=== PATIENT | female | born 1965 | race Caucasian/White ===

== ENCOUNTER → 2018-04-22 12:49 | Outpatient (CLI) | payer OTHER, SELFPAY ==
--- NOTE | 2018-04-22 | DI.MRI.S_ITS ---
PROCEDURE: MR HIP LT W CON INDICATIONS: LEFT HIP AND GROIN PAIN TECHNIQUE: After the administration of 10 mL of dilute intra-articular Gadolinium contrast, coronal STIR of the majority of the bony pelvis; coronal and oblique axial T1 spin echo with fat saturation, axial T2 fast spin echo with fat saturation, sagittal T1 spin echo with and without fat saturation of the involved hip. COMPARISON: [facility], MR, MR HIP RT W CON, 04/22/2018, 14:03. [facility], MR, HIP WITH CONTRAST, 01/05/2017, 10:25. [facility], CR, HIPBILAT 3TO4V W PEL IF PERFD, 01/05/2017, 10:02. FINDINGS: Image quality: Diagnostic. Bones and joints: There is no acute fracture, dislocation, or suspicious osseous lesion identified involving the osseous structures of the left hip. Slight heterogeneity of the superior hyaline articular cartilage over the left hip is identified. No definite full-thickness cartilaginous defects are identified. Minimal degenerative changes are identified involving the left hip with slight marrow edema evident along the anterior margin of the left hip the femoral head-neck junction. The alpha angle of the left femoral head measures approximately 63?. There is adequate distention of the left hip joint with the injected contrast. No loose intra-articular joint bodies or significant synovial hypertrophy is appreciated. Postoperative and degenerative changes of the lower lumbar spine are evident. Mild edema is noted within the paraspinal muscles, which is similar to the previous MRI of the contralateral hip. Degenerative changes of the sacroiliac joints and right hip are also present. Labrum: There is a very small tear identified within the 12 o'clock position of the superior labrum. No detached labral fragment or large paralabral cysts are evident. There may be additional separate tear along the posterior aspect of the labrum extending from approximately the 3 o'clock position to the 4 o'clock position (image 12, series 3). Tendons and ligaments: There is moderate increased signal identified involving the distal aspect of the gluteus minimus tendon with overlying soft tissue edema. There is also slight increased signal involving the distal gluteus medius tendon. No significant tearing is identified. There may be a trace of fluid within the greater trochanteric bursa. The distal left iliopsoas and proximal hamstrings tendons are intact and otherwise within normal limits. The ligamentum teres appears intact where visualized. Soft tissues: Visualized muscles demonstrate normal bulk and internal signal. Quadratus femoris muscle demonstrates no internal edema to suggest ischiofemoral impingement. The proximal sciatic neurovascular bundle appears normal adjacent to the hamstring tendons. No free pelvic fluid. Bladder wall thickness is normal. Genitourinary structures and bowel loops appear normal where visualized. IMPRESSION: 1. Mild degenerative changes of the left hip with corresponding increased alpha angle and prominence of the femoral head-neck junction. Please correlate clinically for possible cam-type femoral acetabular impingement. 2. Small focal superior labral tear and an additional posterior inferior labral tear. 3. Mild to moderate distal gluteus medius and gluteus minimus tendinopathy without significant tearing. Dictated by: Kong Escobar M.D. on 04/22/2018 at 16:14 Approved by: Kong Escobar M.D. on 04/22/2018 at 16:21
--- NOTE | 2018-04-22 | DI.RAD.S_ITS ---
PROCEDURE: FL HIP INJECTION MR/CT RT INDICATIONS: PAIN IN UNSPECIFIED HIP TECHNIQUE: The indications, alternatives, benefits, risks, and complications of the procedure were explained to the patient. Written informed consent was obtained and placed in the chart. The hip was examined fluoroscopically with the legs fixed in slight internal rotation, and a site for needle placement chosen for entry into the hip joint from an anterior approach. Care was taken to locate the common femoral artery and vein beforehand. The skin was prepped and draped in a sterile fashion, and 1% Lidocaine infiltrated from skin down to joint capsule. A spinal needle was inserted into the joint, and a small amount of iodinated contrast media injected to confirm intra-articular placement of the needle tip. This was followed by approximately 10 mL dilute solution of a gadolinium containing MR contrast agent. The needle was removed and a dressing was applied. The patient was given postprocedural instructions and sent to the MR suite for imaging. FINDINGS: A single fluoroscopic spot image demonstrates intra-articular location of injected iodinated contrast. IMPRESSION: Successful fluoroscopically guided administration of dilute Gadolinium solution into the hip joint for MR arthrogram. Dictated by: Deni Pulliam M.D. on 04/22/2018 at 13:31 Approved by: Deni Pulliam M.D. on 04/22/2018 at 13:32
--- NOTE | 2018-04-22 | DI.MRI.S_ITS ---
PROCEDURE: MR HIP RT W CON INDICATIONS: PAIN IN UNSPECIFIED HIP TECHNIQUE: After the administration of 10 mL of dilute intra-articular Gadolinium contrast, coronal STIR of the majority of the bony pelvis; coronal and oblique axial T1 spin echo with fat saturation, axial T2 fast spin echo with fat saturation, sagittal T1 spin echo with and without fat saturation of the involved hip. COMPARISON: [facility], MR, HIP WITH CONTRAST, 01/05/2017, 10:25. FINDINGS: Image quality: Diagnostic. Bones and joints: There is no acute fracture, dislocation, suspicious osseous lesion, or evidence of avascular necrosis involving the osseous structures of the right hip. Mild thinning of the superior hyaline articular cartilage of the right hip is identified without a definite full-thickness defect appreciated. Mild degenerative changes of the hip are present. Minimal degenerative cystic change on the anterior femoral head-neck region is noted. A small bony protuberance is evidence on the anterior femoral head-neck junction with mild increase in the mouth angle of the right femoral head, measuring approximately 60?. There is adequate distention of the right hip joint with the injected contrast. No loose intra-articular joint bodies are evident. The remainder of the imaged osseous structures of the pelvis demonstrate postsurgical changes of the lower lumbar spine with mild edema involving the adjacent paraspinal muscles. There may be mild degenerative changes involving the sacroiliac joints and the left hip. This appearance is similar to the prior examination. Labrum: There is a small superior labral tear identified at that extends from approximately the 11 o'clock position to the 1 o'clock position. This tear is slightly more pronounced on the current exam. No detached labral fragments are evident. No large paraseptal cysts are evident. Tendons and ligaments: The distal right iliopsoas and proximal hamstrings tendons are intact and otherwise within normal limits. There is thickening and increased signal identified involving the distal right gluteus minimus tendon. Slight increase signal involving the distal gluteus medius tendon is present. There is no significant tearing. Edema within the greater trochanteric bursa is present. There may be a trace amount of fluid contained within the bursa. The ligamentum teres appears intact where visualized. Soft tissues: Visualized muscles demonstrate normal bulk and internal signal. Quadratus femoris muscle demonstrates no internal edema to suggest ischiofemoral impingement. The proximal sciatic neurovascular bundle appears normal adjacent to the hamstring tendons. No free pelvic fluid. Bladder wall thickness is normal. Genitourinary structures and bowel loops appear normal where visualized. IMPRESSION: 1. Small superior labral tear is slightly more prominent on the current study. No detached fragments. 2. Mild degenerative changes of the right hip with associated mildly increased alpha angle and bony prominence of the femoral head-neck junction. Please correlate clinically for possible cam-type femoral acetabular impingement. 3. Mild to moderate distal gluteus medius and gluteus minimus tendinopathy without significant tearing. 4. No loose intra-articular joint bodies. Dictated by: Kong Escobar M.D. on 04/22/2018 at 15:41 Approved by: Kong Escobar M.D. on 04/22/2018 at 15:48
--- NOTE | 2018-04-22 12:54 | DI.RAD.S_ITS ---
PROCEDURE: FL HIP INJECTION MR/CT LT INDICATIONS: PAIN IN UNSPECIFIED HIP TECHNIQUE: The indications, alternatives, benefits, risks, and complications of the procedure were explained to the patient. Written informed consent was obtained and placed in the chart. The hip was examined fluoroscopically with the legs fixed in slight internal rotation, and a site for needle placement chosen for entry into the hip joint from an anterior approach. Care was taken to locate the common femoral artery and vein beforehand. The skin was prepped and draped in a sterile fashion, and 1% Lidocaine infiltrated from skin down to joint capsule. A spinal needle was inserted into the joint, and a small amount of iodinated contrast media injected to confirm intra-articular placement of the needle tip. This was followed by approximately 10 mL dilute solution of a gadolinium containing MR contrast agent. The needle was removed and a dressing was applied. The patient was given postprocedural instructions and sent to the MR suite for imaging. FINDINGS: A single fluoroscopic spot image demonstrates intra-articular location of injected iodinated contrast. IMPRESSION: Successful fluoroscopically guided administration of dilute Gadolinium solution into the hip joint for MR arthrogram. Dictated by: Deni Pulliam M.D. on 04/22/2018 at 15:56 Approved by: Deni Pulliam M.D. on 04/22/2018 at 15:56
== END ==
PROVIDERS: PCP Family Medicine; Visit Provider Internal Medicine
DX: M25.551 Pain in right hip (principal); M25.552 Pain in left hip; M16.0 Bilateral primary osteoarthritis of hip; S73.192A Other sprain of left hip, initial encounter; S73.191A Other sprain of right hip, initial encounter
CPT/HCPCS: 27093; 73722; 77002

== ENCOUNTER → 2020-08-07 11:41 | Outpatient (CLI) | payer OTHER, SELFPAY ==
--- NOTE | 2020-08-07 11:43 | DI.RAD.S_ITS ---
PROCEDURE: XR ANKLE RT 2V INDICATIONS: PAIN IN BOTH FEET TECHNIQUE: 2 views of the ankle were acquired. COMPARISON: None. FINDINGS: Bones: No fractures or dislocations. Ankle mortise is normally aligned. No suspicious bony lesions. A small corticated ossicle distal to the lateral malleolus. Mild osteoarthritic changes at the tibiotalar joint and talonavicular joint. Soft tissues: No tibiotalar joint effusion. Achilles tendon appears normal. IMPRESSION: Mild osteoarthritis. Dictated by: Deni Pulliam M.D. on 08/07/2020 at 12:27 Approved by: Deni Pulliam M.D. on 08/07/2020 at 12:37
--- NOTE | 2020-08-07 11:43 | DI.RAD.S_ITS ---
PROCEDURE: XR FOOT LT 2V INDICATIONS: PAIN IN BOTH FEET TECHNIQUE: 2 views of the foot were acquired. COMPARISON: None. FINDINGS: Bones: No fractures or dislocations. No suspicious bony lesions. Lawa-ra-jboudajxvjlhbo changes at the 1st metatarsophalangeal joint and multiple interphalangeal joints. Soft tissues: No tibiotalar joint effusion. Achilles tendon appears normal. IMPRESSION: Defz-sw-[id number] osteoarthritis. Dictated by: Deni Pulliam M.D. on 08/07/2020 at 12:38 Approved by: Deni Pulliam M.D. on 08/07/2020 at 12:39
--- NOTE | 2020-08-07 11:43 | DI.RAD.S_ITS ---
PROCEDURE: XR FOOT RT 2V INDICATIONS: PAIN IN BOTH FEET TECHNIQUE: 2 views of the foot were acquired. COMPARISON: None. FINDINGS: Bones: No fractures or dislocations. No suspicious bony lesions. Mild arthritic changes at the first metatarsophalangeral joint and multiple interphalangeal joints. Soft tissues: No tibiotalar joint effusion. Achilles tendon appears normal. IMPRESSION: Mild osteoarthritis. Dictated by: Deni Pulliam M.D. on 08/07/2020 at 12:25 Approved by: Deni Pulliam M.D. on 08/07/2020 at 12:26
--- NOTE | 2020-08-07 11:43 | DI.RAD.S_ITS ---
PROCEDURE: XR ANKLE LT 2V INDICATIONS: PAIN IN BOTH FEET TECHNIQUE: 2 views of the ankle were acquired. COMPARISON: None. FINDINGS: Bones: No fractures or dislocations. Ankle mortise is normally aligned. No suspicious bony lesions. Soft tissues: No tibiotalar joint effusion. Achilles tendon appears normal. IMPRESSION: No acute osseous abnormality. Dictated by: Deni Pulliam M.D. on 08/07/2020 at 12:37 Approved by: Deni Pulliam M.D. on 08/07/2020 at 12:38
--- NOTE | 2020-08-07 11:59 | DI.MRI.S_ITS ---
PROCEDURE: MRFOOT LT WO CON INDICATIONS: PAIN IN FEET TECHNIQUE: Noncontrast sagittal T1 spin echo and T2 fast spin echo with fat saturation, long-axis T1 spin echo and T2 fast spin echo with fat saturation, short-axis T1 spin echo and T2 fast spin echo with fat saturation through the forefoot. COMPARISON: None. FINDINGS: Image quality: Excellent. Bones and joints: No acute trabecular bone injury. Mild degenerative changes are seen in the 1st tarsometatarsal joint. Oarm-iv-sseesong 1st tarsometatarsal joint degenerative changes are seen in there are mild degenerative changes at the metatarsal sesamoid articulations. Minimal degenerative changes are seen in the sesamoids without associated edema. No intraosseous lesions. Soft tissues: The visualized plantar foot muscles demonstrate normal signal and bulk. Visualized flexor and extensor tendons appear intact, without tenosynovitis. The distal insertions of the peroneus brevis and longus tendons appear intact. The principal Lisfranc ligament appears intact. A 3 mm fluid collection plantar to the 4th metatarsal head is most likely a small adventitial bursal collection. Sagittal images demonstrate no evidence for plantar plate tears. IMPRESSION: 1. No acute osseous abnormality. Mild to moderate 1st metatarsophalangeal and 1st tarsometatarsal joint osteoarthrosis. 2. Tiny 3 mm adventitial bursal effusion at the plantar aspect of the 4th metatarsal head. Dictated by: Paul Bustos M.D. on 08/07/2020 at 13:57 Approved by: Paul Bustos M.D. on 08/07/2020 at 14:03
--- NOTE | 2020-08-07 11:59 | DI.MRI.S_ITS ---
PROCEDURE: MR FOOT RT WO CON INDICATIONS: PAIN IN FEET TECHNIQUE: Noncontrast sagittal T1 spin echo and T2 fast spin echo with fat saturation, long-axis T1 spin echo and T2 fast spin echo with fat saturation, short-axis T1 spin echo and T2 fast spin echo with fat saturation through the forefoot. COMPARISON: [facility], CR, XR ANKLE RT 2V, 08/07/2020, 12:44. FINDINGS: Image quality: Excellent. Bones and joints: No acute trabecular bone injury. Mild degenerative changes are seen in the 1st tarsometatarsal joint and mild to moderate degenerative changes are seen at the 1st metatarsophalangeal joint. Mild degenerative changes are seen at the articulation between the 1st metatarsal and the sesamoids. No intraosseous lesions. Soft tissues: The visualized plantar foot muscles demonstrate normal signal and bulk. Visualized flexor and extensor tendons appear intact, without tenosynovitis. The distal insertions of the peroneus brevis and longus tendons appear intact. The principal Lisfranc ligament appears intact. No soft tissue ganglion cysts. Sagittal images demonstrate no evidence for plantar plate tears. IMPRESSION: No acute trabecular bone injury. Mild to moderate degenerative changes involving the 1st metatarsophalangeal joint, metatarsosesamoid articulations, and the 1st tarsometatarsal joint. Dictated by: Paul Bustos M.D. on 08/07/2020 at 13:41 Approved by: Paul Bustos M.D. on 08/07/2020 at 13:49
--- NOTE | 2020-08-07 11:59 | DI.MRI.S_ITS ---
PROCEDURE: MR ANKLE LT WO CON INDICATIONS: PAIN IN FEET TECHNIQUE: Noncontrast sagittal T1 spin echo and T2 fast spin echo with fat saturation, axial proton density fast spin echo and T2 fast spin echo with fat saturation, coronal T1 spin echo and T2 fast spin echo with fat saturation through the ankle/hindfoot. COMPARISON: [facility], CR, XR ANKLE LT 2V, 08/07/2020, 12:43. [facility], MR, MR ANKLE RT WO CON, 08/07/2020, 12:04. FINDINGS: Image quality: Excellent. Bones and joints: No bone marrow contusions or fractures. No hindfoot coalitions. No osteochondral injuries of the talar dome. No pathologic joint effusions. Mild degenerative changes are seen at the 1st tarsometatarsal joint. Medial structures: The deep and superficial layers of the deltoid ligament appear intact. The spring ligament components are intact. The posterior tibialis, flexor digitorum longus, and flexor hallucis longus tendons are intact. The posterior tibial neurovascular bundle appears normal within the tarsal tunnel, without extrinsic mass effect. Lateral structures: Attenuation of the anterior talofibular ligament is compatible with chronic tearing of the anterior talofibular ligament. Mildly increased signal in the calcaneofibular ligament also likely represents a chronic sprain. The posterior talofibular ligament is intact. The anterior and posterior tibiofibular ligaments appear intact. The peroneus longus and brevis tendons demonstrate normal location and morphology. The sinus tarsi demonstrates normal fatty signal, without edema, fibrosis, or cyst formation. Anterior structures: The tibialis anterior, extensor hallucis longus, and extensor digitorum longus tendons appear intact. The dorsal talonavicular ligament appears intact. Posterior and plantar structures: Achilles tendon is intact. Medial and lateral bands of the plantar fascia are of normal thickness. No abductor digiti quinti muscle atrophy to suggest Ward neuropathy. IMPRESSION: 1. 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 2. Chronic moderate grade sprain of the calcaneofibular ligament. 3. Mild 1st tarsometatarsal joint osteoarthrosis. Dictated by: Paul Bustos M.D. on 08/07/2020 at 13:49 Approved by: Paul Bustos M.D. on 08/07/2020 at 13:57
--- NOTE | 2020-08-07 11:59 | DI.MRI.S_ITS ---
PROCEDURE: MR ANKLE RT WO CON INDICATIONS: PAIN IN FEET TECHNIQUE: Noncontrast sagittal T1 spin echo and T2 fast spin echo with fat saturation, axial proton density fast spin echo and T2 fast spin echo with fat saturation, coronal T1 spin echo and T2 fast spin echo with fat saturation through the ankle/hindfoot. COMPARISON: [facility], MR, MR FOOT RT WO CON, 08/07/2020, 12:28. [facility], CR, XR ANKLE RT 2V, 08/07/2020, 12:44. FINDINGS: Image quality: Excellent. Bones and joints: No bone marrow contusions or fractures. No hindfoot coalitions. No osteochondral injuries of the talar dome. No pathologic joint effusions. Medial structures: The deep and superficial layers of the deltoid ligament appear intact. The spring ligament components are intact. The posterior tibialis, flexor digitorum longus, and flexor hallucis longus tendons are intact. The posterior tibial neurovascular bundle appears normal within the tarsal tunnel, without extrinsic mass effect. Lateral structures: A small nonedematous ossification is seen at the fibular attachment of the anterior talofibular ligament, compatible with a prior avulsion injury. The calcaneofibular and posterior talofibular ligaments are intact. The anterior and posterior tibiofibular ligaments appear intact. The peroneus longus and brevis tendons demonstrate normal location and morphology. The sinus tarsi demonstrates normal fatty signal, without edema, fibrosis, or cyst formation. Anterior structures: The tibialis anterior, extensor hallucis longus, and extensor digitorum longus tendons appear intact. The dorsal talonavicular ligament appears intact. Posterior and plantar structures: Achilles tendon is intact. Medial and lateral bands of the plantar fascia are of normal thickness. No abductor digiti quinti muscle atrophy to suggest Ward neuropathy. IMPRESSION: 1. Complete tearing of the proximal anterior talofibular ligament from its fibular attachment with associated small chronic nonedematous osseous avulsion fragment. 2. No acute osseous abnormality. No significant tendon injury is seen. Dictated by: Paul Bustos M.D. on 08/07/2020 at 13:28 Approved by: Paul Bustos M.D. on 08/07/2020 at 13:40
== END ==
PROVIDERS: PCP Family Medicine; Referring Provider Podiatrist; Visit Provider Podiatrist
DX: M79.671 Pain in right foot (principal); M79.672 Pain in left foot; M76.72 Peroneal tendinitis, left leg; M76.71 Peroneal tendinitis, right leg; R26.2 Difficulty in walking, not elsewhere classified; M19.071 Primary osteoarthritis, right ankle and foot
CPT/HCPCS: 73600; 73620; 73718; 73721

== ENCOUNTER 2021-06-04 11:23 | Emergency (ER) | payer OTHER, SELFPAY ==
[2021-06-04 11:39] VITALS: PULSE 62; O2SAT 100
[2021-06-04 11:45] VITALS: BP 140/73; PULSE 66; RESP 16; TEMP 37; O2SAT 98; BMI 26.4
[2021-06-04 11:54] LABS: Add Manual Diff / Slide Review NO; Basophils Absolute Auto 0 /uL (0-100); Eosinophils Absolute Auto 0 /uL (0-450); Hematocrit 36.1 % (36-46); Hemoglobin 12.2 g/dL (12.0-16.0); Lymphocytes Absolute Auto 2000 /uL (1100-4500); Lymphocytes Percent Auto 42.4 % (25-40); Mean Corpuscular HGB Conc 33.7 % (30-36); Mean Corpuscular Hemoglobin 29.6 PG (26-34); Mean Corpuscular Volume 87.7 fL (80-100); Monocytes Absolute Auto 300 /uL (0-900); Monocytes Percent Auto 7.1 % (3-14); Neutrophils Absolute Auto 2300 /uL (1500-7000); Neutrophils Percent Auto 48.5 % (50-75); Platelet Count 242 X10^3/uL (150-400); Red Blood Cell Count 4.12 X10^6/uL (4.0-5.2); Red Cell Distribution Width 12.8 % (11.6-14.8); White Blood Cell Count 4.7 X10^3/uL (4.5-11.0)
[2021-06-04 12:00] VITALS: PULSE 64; O2SAT 96
[2021-06-04 12:00] LABS: Alanine Aminotransferase 13 IU/L (<35); Albumin 4.5 g/dL (3.5-5.0); Albumin Globulin Ratio 1.5 (1.0-2.8); Alkaline Phosphatase 51 U/L (38-126); Aspartate Aminotransferase 26 IU/L (14-36); BUN Creatinine Ratio 22.7 (6-22); Bilirubin Total 0.4 mg/dL (0.2-1.3); Blood Urea Nitrogen 15 mg/dL (7-17); Calcium 9.2 mg/dL (8.4-10.2); Carbon Dioxide 29 mmol/L (22-32); Chloride 107 mmol/L (98-107); Estimated Glomerular Filt Rate > 60.0 mL/min (>60); Glucose 101 mg/dL (70-100); HEMOLYSIS 27 (0-50); Lipase 97 U/L (23-300); Potassium 4.2 mmol/L (3.4-5.1); Sodium 139 mmol/L (137-145); Total Protein 7.5 g/dL (6.3-8.2)
--- NOTE | 2021-06-04 12:21 | DI.RAD.S_ITS ---
PROCEDURE: XR CHEST 2V INDICATIONS: Epigastric pain TECHNIQUE: 2 views of the chest were acquired. COMPARISON: [facility], , CHEST 1 VIEW, 04/17/2015, 11:37. FINDINGS: Surgical changes and devices: None. Lungs and pleura: Lungs are clear. No pleural effusions or pneumothorax. Mediastinum: Mediastinal contours are normal. Heart size is normal. Bones and chest wall: No suspicious bony abnormalities. Soft tissues appear unremarkable. IMPRESSION: No acute cardiopulmonary abnormality. Dictated by: Thad Vázquez M.D. on 06/04/2021 at 12:56 Approved by: Thad Vázquez M.D. on 06/04/2021 at 12:57
--- NOTE | 2021-06-04 12:22 | DI.US.S_ITS ---
PROCEDURE: US ABDOMEN LIMITED INDICATIONS: RUQ PAIN TECHNIQUE: Real-time scanning was performed of the abdominal and retroperitoneal organs, with image documentation. COMPARISON: None. FINDINGS: Liver: Liver is normal in size and homogeneous in echotexture. Gallbladder: No gallbladder wall thickening, pericholecystic fluid, or shadowing gallstones. Biliary ducts: Intrahepatic bile ducts are non-dilated. Extrahepatic bile duct caliber measures 6.9 mm. Normal is 6-7 mm or less in diameter, or 10 mm or less post-cholecystectomy. Pancreas: Not well visualized. Miscellaneous: No free abdominal fluid. IMPRESSION: No significant abnormality. Dictated by: Sergio Garza M.D. on 06/04/2021 at 13:21 Approved by: Sergio Garza M.D. on 06/04/2021 at 13:22
--- NOTE | 2021-06-04 12:25 | ED_ITS ---
HPI - Abdominal Pain <Messi Vincent PA-C - Last Filed: 06/04/21 16:24> General Chief Complaint: Abdominal Pain Stated Complaint: Poss Gallbladder attack- sent by PCP Time Seen by Provider: 06/04/21 11:59 Source: patient Mode of arrival: Ambulatory History of Present Illness HPI narrative: 56-year-old female with no reported past medical history presents with 8 days of right-sided flank pain and epigastric pain. Patient states that she has been taking Tylenol and ibuprofen with moderate relief. Patient also tried some Pepto-Bismol last night for the epigastric pain with moderate relief. Denies higher episodes of such pain. Patient denies history of kidney stones, gallstones. Patient endorses some nausea, chills. Patient denies fever, chest pain, cough, shortness of breath, vomiting, dysuria, lightheadedness, dizziness, syncope. Related Data Allergies Allergy/AdvReac Type Severity Reaction Status Date / Time No Known Drug Allergies Allergy Verified 06/04/21 11:45 Review of Systems <Messi Vincent PA-C - Last Filed: 06/04/21 16:24> Review of Systems ROS Unobtainable: All systems reviewed & are unremarkable except as noted in HPI and below Constitutional Constitutional: Reports chills, Denies fatigue, Denies fever(s), Denies frequent falls, Denies lethargy and Denies weakness Eyes Eyes: Denies change in vision, Denies eye discharge, Denies irritation and Denies loss of vision ENT Ears, Nose, Mouth, and Throat: Denies change in voice, Denies dizziness, Denies neck pain, Denies sore throat and Denies throat swelling Cardiovascular Cardiovascular: Denies chest pain, Denies irregular heart rhythm, Denies lightheadedness, Denies palpitations, Denies dyspnea, Denies dyspnea on exertion and Denies orthopnea Respiratory Respiratory: Denies cough, Denies dyspnea, Denies dyspnea on exertion and Denies wheezing Gastrointestinal Gastrointestinal: Reports abdominal pain, Denies change in bowel habits, Denies diarrhea, Reports nausea and Denies vomiting Comments: Right-sided flank pain Genitourinary Genitourinary: Denies hematuria, Denies dysuria, Denies flank pain, Denies urinary incontinence and Denies urinary urgency Musculoskeletal Musculoskeletal: Denies back pain, Denies muscle weakness, Denies neck pain, Denies numbness and Denies tingling Integumentary/Breasts Skin/Breast: Denies pruritus, Denies erythema, Denies rash and Denies wounds Neurologic Neurologic: Denies behavioral changes, Denies confusion, Denies dizziness, Denies frequent falls, Denies loss of vision, Denies numbness, Denies tingling and Denies weakness Psychiatric Psychiatric: Denies anxiety, Denies behavioral changes, Denies confusion, Denies depression, Denies homicidal ideation and Denies suicidal ideation Endocrine Endocrine: Denies fatigue, Denies flushing and Denies palpitations Hematologic/Lymphatic Hematologic/Lymphatic: Denies easy bruising Allergic/Immunologic Allergic/Immunologic: Denies urticaria, Denies throat swelling and Denies wheezing Patient History <Messi Vincent PA-C - Last Filed: 06/04/21 16:24> Social History Smoking Status: Never smoker Smoking Status: Never smoker alcohol intake frequency: holidays/special occasions only Substance Use Type: does not use Exam <Messi Vincent PA-C - Last Filed: 06/04/21 16:24> Initial Vital Signs Initial Vital Signs: Vital Signs Pulse Rate 62 06/04/21 11:39 Pulse Oximetry 100 06/04/21 11:39 Const General: cooperative, healthy appearing and comfortable HENFL Head: normal to inspection Eyes General: appearance normal, both eyes and all related structures Neck Neck: normal visual inspection Chest Chest: normal inspection of the chest Resp Effort & Inspection: normal respiratory effort Auscultation: clear to auscultation bilaterally Cardio Rate: regular rate Rhythm: regular rhythm GI Inspection: normal to inspection Other: Abdomen is soft, nondistended. Tenderness to palpation in the epigastric and right upper quadrant regions. Positive right-sided CVA tenderness. General: CVA tenderness (Right-sided) Back/Spine/Pelvis Back: normal to inspection and CVA tenderness right Other: No midline tenderness to palpation. Skin General: no rashes or lesions noted Neuro General: patient alert, patient awake and patient oriented x3 <Yolanda Shaw DO - Last Filed: 06/07/21 09:11> Initial Vital Signs Initial Vital Signs: Vital Signs Pulse Rate 62 06/04/21 11:39 Pulse Oximetry 100 06/04/21 11:39 Course <Messi Vincent PA-C - Last Filed: 06/04/21 16:24> Orders Ordered: Discontinued Medications Al Hydrox/Mg Hydrox/Simethicone 20 ml/ Lidocaine HCl 15 ml 0 ml PO NOW ONE Stop: 06/04/21 12:24 Last Admin: 06/04/21 12:38 Dose: 35 ml Documented by: ROXANNE Famotidine (Famotidine 20 Mg/2 Ml Vial) 20 mg IV NOW [facility] Last Admin: 06/04/21 12:39 Dose: 20 mg Documented by: ROXANNE Ketorolac Tromethamine (Ketorolac 30 Mg/Ml Vial) 15 mg IV NOW ONE Stop: 06/04/21 12:24 Last Admin: 06/04/21 12:39 Dose: 15 mg Documented by: ROXANNE Vital Signs Vital signs: Vital Signs - 8 hr 06/04/21 11:39 06/04/21 11:45 06/04/21 12:00 Temperature 98.6 F Pulse Rate 62 66 64 Respiratory Rate 16 Blood Pressure 140/73 Pulse Oximetry 100 98 96 06/04/21 13:46 06/04/21 14:00 06/04/21 14:30 Temperature Pulse Rate 62 63 69 Respiratory Rate Blood Pressure 128/65 Pulse Oximetry 96 96 97 <Yolanda Shaw DO - Last Filed: 06/07/21 09:11> Orders Ordered: Discontinued Medications Al Hydrox/Mg Hydrox/Simethicone 20 ml/ Lidocaine HCl 15 ml 0 ml PO NOW ONE Stop: 06/04/21 12:24 Last Admin: 06/04/21 12:38 Dose: 35 ml Documented by: ROXANNE Famotidine (Famotidine 20 Mg/2 Ml Vial) 20 mg IV NOW [facility] Last Admin: 06/04/21 12:39 Dose: 20 mg Documented by: ROXANNE Ketorolac Tromethamine (Ketorolac 30 Mg/Ml Vial) 15 mg IV NOW ONE Stop: 06/04/21 12:24 Last Admin: 06/04/21 12:39 Dose: 15 mg Documented by: ROXANNE Vital Signs Vital signs: Vital Signs - 8 hr 06/04/21 11:39 06/04/21 11:45 06/04/21 12:00 Temperature 98.6 F Pulse Rate 62 66 64 Respiratory Rate 16 Blood Pressure 140/73 Pulse Oximetry 100 98 96 12/21/21 13:46 06/04/21 14:00 06/04/21 14:30 Temperature Pulse Rate 62 63 69 Respiratory Rate Blood Pressure 128/65 Pulse Oximetry 96 96 97 MDM - Abdominal Pain <Hyma KERRI Vincent - Last Filed: 06/04/21 16:24> Lab Data Lab results narrative: Labs within normal limits. UA negative for UTI Result diagrams: 06/04/21 11:35 06/04/21 11:35 Labs: Lab Results 06/04/21 06/04/21 06/04/21 Range/Units 11:35 11:35 11:35 WBC 4.7 (4.5-11.0) X10^3/uL RBC 4.12 (4.0-5.2) X10^6/uL Hgb 12.2 (12.0-16.0) g/dL Hct 36.1 (36-46) % MCV 87.7 (80-100) fL MCH 29.6 (26-34) PG MCHC 33.7 (30-36) % RDW 12.8 (11.6-14.8) % Plt Count 242 (150-400) X10^3/uL Neut % (Auto) 48.5 L (50-75) % Lymph % (Auto) 42.4 H (25-40) % [place] % (Auto) 7.1 (3-14) % Eos % (Auto) 1.0 L (2-4) % Baso % (Auto) 1.0 (0-2) % Neut # (Auto) 2300 (2293-7305) /uL Lymph # (Auto) 2000 (5308-4376) /uL [place] # (Auto) 300 (0-900) /uL Eos # (Auto) 0 (0-450) /uL Baso # (Auto) 0 (0-100) /uL Sodium 139 (137-145) mmol/L Potassium 4.2 (3.4-5.1) mmol/L Chloride 107 (98-107) mmol/L Carbon Dioxide 29 (22-32) mmol/L BUN 15 (7-17) mg/dL Creatinine 0.66 (0.52-1.04) mg/dL Estimated GFR > 60.0 (>60) mL/min BUN/Creatinine Ratio 22.7 H (6-22) Glucose 101 H (70-100) mg/dL Calcium 9.2 (8.4-10.2) mg/dL Total Bilirubin 0.4 (0.2-1.3) mg/dL AST 26 (14-36) IU/L ALT 13 (<35) IU/L Alkaline Phosphatase 51 (38-126) U/L Troponin I < 0.012 (0.01-0.034) ng/mL Total Protein 7.5 (6.3-8.2) g/dL Albumin 4.5 (3.5-5.0) g/dL Globulin 3.0 (1.7-4.1) g/dL Albumin/Globulin Ratio 1.5 (1.0-2.8) Lipase 97 (23-300) U/L Point of care testing: Urine Dip Bedside Urine Glucose Negative Bedside Urine Bilirubin - Negative Bedside Urine Ketone - Negative Urine Specific Burt 1.015 Bedside Urine Occult Blood - Negative Bedside Urine pH 6.5 Bedside Urine Protein - Negative Bedside Urine Urobilinogen - Negative Bedside Urine Nitrite - Negative Bedside Urine Leukocytes - Negative Esterase Imaging Data CT scan - abdomen/pelvis: Radiologist's Impression: PROCEDURE:? CT ABDOMEN PELVIS W CON ? INDICATIONS:? ?kidney stones,?pancreatitis ? TECHNIQUE:? After the administration of IV contrast, axial sections were acquired from the lung bases to the pubic symphysis.? Coronal and sagittal reformats were performed.? For radiation dose reduction, the following was used:? automated exposure control, adjustment of mA and/or kV according to patient size. ? COMPARISON:? [facility], , US ABDOMEN LIMITED, 06/04/2021, 12:44. ? FINDINGS:? Image quality:? Excellent.? ? Lung bases:? Bibasilar atelectasis.? No pleural effusion.? ? Heart:? No significant findings. ? ? ABDOMEN: Liver:? No focal lesion.? ? Gallbladder:? Not distended.? No calcified gallstones.? ? Biliary ducts:? Unremarkable.? ? Pancreas:? Enhances uniformly.? No peripancreatic fluid collection. Spleen:? No splenomegaly. Adrenal Glands:? No nodule. Kidneys and Ureters:? No hydronephrosis.? No hydroureter.? No solid renal mass. ? Stomach and Bowel:? Stomach, small bowel loops, and colon are unremarkable.? The appendix is partially visualized or appendiceal stump.? No inflammatory change seen.? Diverticulosis.? Peritoneum:? No abnormal intraperitoneal fluid.? No free air.? ? Ventral Wall: ? No hernia.? Abdominal Nodes:? No retroperitoneal or mesenteric adenopathy by size criteria.? Vessels:? Aorta and inferior vena cava are normal in size.? ? PELVIS: Pelvic Organs:? There is a trace amount of free fluid in the pelvis.? Uterus is unremarkable.? ? Bladder:? No bladder stones.? Adequately distended. Pelvic Nodes: No enlarged lymph nodes.? Miscellaneous: No inguinal hernias are seen. ? ? ? Bones:? L4-L5 fixation hardware with intervertebral body spacer. ? ? IMPRESSION:? 1. There is a trace amount of free fluid in the pelvis.? This is nonspecific and could be seen in the setting of occult inflammatory process or be physiologic in this female patient although the patient is likely post menopausal given the patient's age. ? 2. Gallbladder is not distended.? No hydronephrosis.? Appendix is partially visualized.? No inflammatory changes identified. ? 3. Diverticulosis.? No diverticulitis appreciated. ? ? Dictated by: Thad Vázquez M.D. on 06/04/2021 at 13:59 ? ? Approved by: Thad Vázquez M.D. on 06/04/2021 at 14:08 ? US - abdomen: Radiologist's Impression: PROCEDURE:? US ABDOMEN LIMITED ? INDICATIONS:? RUQ PAIN ? TECHNIQUE:? Real-time scanning was performed of the abdominal and retroperitoneal organs, with image documentation.? ? COMPARISON:? None. ? FINDINGS:? ? Liver:? Liver is normal in size and homogeneous in echotexture.? ? Gallbladder:? No gallbladder wall thickening, pericholecystic fluid, or shadowing gallstones.? ? Biliary ducts:? Intrahepatic bile ducts are non-dilated.? Extrahepatic bile duct caliber measures 6.9 mm.? Normal is 6-7 mm or less in diameter, or 10 mm or less post-cholecystectomy.? ? Pancreas:? Not well visualized.? Miscellaneous:? No free abdominal fluid.? ? ? IMPRESSION:? No significant abnormality. ? Dictated by: Sergio Garza M.D. on 06/04/2021 at 13:21 ? ? Approved by: Sergio Garza M.D. on 06/04/2021 at 13:22 ? [facility] Narrative Medical decision making narrative: 56-year-old female with no reported past medical history presents with 8 days of right-sided flank pain and epigastric pain. Concern for cholelithiasis versus PUD versus pancreatitis versus kidney stones versus UTI versus pneumonia versus ACS. Will order labs, lipase, EKG, chest x-ray, troponin, ultrasound right upper quadrant. Will consider CT abdomen pelvis if ultrasound negative. Will give Toradol, GI cocktail, Pepcid for symptoms. Will reassess. Labs, CT abdomen pelvis an ultrasound negative for acute findings. Discussed finding of free fluid in the CT with patient. Patient's symptoms improved with medications. Patient will follow-up with her PCP for further workup. ED return precautions discussed with patient. Patient verbalized understanding. <Yolanda Shaw, DO - Last Filed: 06/07/21 09:11> Lab Data Labs: Lab Results 06/04/21 06/04/21 06/04/21 Range/Units 11:35 11:35 11:35 WBC 4.7 (4.5-11.0) X10^3/uL RBC 4.12 (4.0-5.2) X10^6/uL Hgb 12.2 (12.0-16.0) g/dL Hct 36.1 (36-46) % MCV 87.7 (80-100) fL MCH 29.6 (26-34) PG MCHC 33.7 (30-36) % RDW 12.8 (11.6-14.8) % Plt Count 242 (150-400) X10^3/uL Neut % (Auto) 48.5 L (50-75) % Lymph % (Auto) 42.4 H (25-40) % [place] % (Auto) 7.1 (3-14) % Eos % (Auto) 1.0 L (2-4) % Baso % (Auto) 1.0 (0-2) % Neut # (Auto) 2300 (5609-7942) /uL Lymph # (Auto) 2000 (4629-7238) /uL [place] # (Auto) 300 (0-900) /uL Eos # (Auto) 0 (0-450) /uL Baso # (Auto) 0 (0-100) /uL Sodium 139 (137-145) mmol/L Potassium 4.2 (3.4-5.1) mmol/L Chloride 107 (98-107) mmol/L Carbon Dioxide 29 (22-32) mmol/L BUN 15 (7-17) mg/dL Creatinine 0.66 (0.52-1.04) mg/dL Estimated GFR > 60.0 (>60) mL/min BUN/Creatinine Ratio 22.7 H (6-22) Glucose 101 H (70-100) mg/dL Calcium 9.2 (8.4-10.2) mg/dL Total Bilirubin 0.4 (0.2-1.3) mg/dL AST 26 (14-36) IU/L ALT 13 (<35) IU/L Alkaline Phosphatase 51 (38-126) U/L Troponin I < 0.012 (0.01-0.034) ng/mL Total Protein 7.5 (6.3-8.2) g/dL Albumin 4.5 (3.5-5.0) g/dL Globulin 3.0 (1.7-4.1) g/dL Albumin/Globulin Ratio 1.5 (1.0-2.8) Lipase 97 (23-300) U/L Point of care testing: Urine Dip Bedside Urine Glucose Negative Bedside Urine Bilirubin - Negative Bedside Urine Ketone - Negative Urine Specific Burt 1.015 Bedside Urine Occult Blood - Negative Bedside Urine pH 6.5 Bedside Urine Protein - Negative Bedside Urine Urobilinogen - Negative Bedside Urine Nitrite - Negative Bedside Urine Leukocytes - Negative Esterase Discharge Plan Departure Patient Disposition: Home Clinical Impression: Abdominal pain Instructions: DI for Abdominal Pain-Adult Activity Restrictions/Additional Instructions: You were evaluated in the ED today for right-sided flank pain and abdominal pain. Your labs, chest x-ray, ultrasound, EKG, CT abdomen pelvis were normal. Your CT abdomen pelvis did show some free fluid in the pelvis, which might be benign or might need further workup by your PCP. However, it is unlikely to be acutely causing your symptoms today. Your symptoms improved with GI cocktail, Pepcid, Toradol. You may continue to take Pepcid AC twice a day for 14 days for acid reflux. Return to the ED if your symptoms worsen, you develop fevers, chills, chest pain, shortness of breath. Please follow-up with your PCP. Referrals: Montano,Mercy, DO [Primary Care Provider] - <Yolanda Shaw DO - Last Filed: 06/07/21 09:11> Cosign ED Attending Cossaturninoature Attestation: I was immediately available in the department for consultation. Documentation has been reviewed.
[2021-06-04] MEDS: MAG HYDROX/ALUMINUM/SIMETH SUS 20 ML, LIDOCAINE VISCOUS 2% 15 ML PO (12:38)
[2021-06-04] MEDS: KETOROLAC 30 MG/ML VIAL 15 MG IV (12:39)
[2021-06-04] MEDS: FAMOTIDINE 20 MG/2 ML VIAL IV (12:39)
--- NOTE | 2021-06-04 13:34 | DI.CT.S_ITS ---
PROCEDURE: CT ABDOMEN PELVIS W CON INDICATIONS: ?kidney stones,?pancreatitis TECHNIQUE: After the administration of IV contrast, axial sections were acquired from the lung bases to the pubic symphysis. Coronal and sagittal reformats were performed. For radiation dose reduction, the following was used: automated exposure control, adjustment of mA and/or kV according to patient size. COMPARISON: [facility], , ABDOMEN LIMITED, 06/04/2021, 12:44. FINDINGS: Image quality: Excellent. Lung bases: Bibasilar atelectasis. No pleural effusion. Heart: No significant findings. ABDOMEN: Liver: No focal lesion. Gallbladder: Not distended. No calcified gallstones. Biliary ducts: Unremarkable. Pancreas: Enhances uniformly. No peripancreatic fluid collection. Spleen: No splenomegaly. Adrenal Glands: No nodule. Kidneys and Ureters: No hydronephrosis. No hydroureter. No solid renal mass. Stomach and Bowel: Stomach, small bowel loops, and colon are unremarkable. The appendix is partially visualized or appendiceal stump. No inflammatory change seen. Diverticulosis. Peritoneum: No abnormal intraperitoneal fluid. No free air. Ventral Wall: No hernia. Abdominal Nodes: No retroperitoneal or mesenteric adenopathy by size criteria. Vessels: Aorta and inferior vena cava are normal in size. PELVIS: Pelvic Organs: There is a trace amount of free fluid in the pelvis. Uterus is unremarkable. Bladder: No bladder stones. Adequately distended. Pelvic Nodes: No enlarged lymph nodes. Miscellaneous: No inguinal hernias are seen. Bones: L4-L5 fixation hardware with intervertebral body spacer. IMPRESSION: 1. There is a trace amount of free fluid in the pelvis. This is nonspecific and could be seen in the setting of occult inflammatory process or be physiologic in this female patient although the patient is likely post menopausal given the patient's age. 2. Gallbladder is not distended. No hydronephrosis. Appendix is partially visualized. No inflammatory changes identified. 3. Diverticulosis. No diverticulitis appreciated. Dictated by: Thad Vázquez M.D. on 06/04/2021 at 13:59 Approved by: Thad Vázquez M.D. on 06/04/2021 at 14:08
[2021-06-04 13:46] VITALS: PULSE 62; O2SAT 96
[2021-06-04 14:00] VITALS: PULSE 63; O2SAT 96
[2021-06-04 14:30] VITALS: BP 128/65; PULSE 69; O2SAT 97
[2021-06-04 14:36] LABS: Troponin I < 0.012 ng/mL (0.01-0.034)
== END 2021-06-04 14:56 | disposition home or self-care (01) ==
PROVIDERS: Emergency Medicine; Emergency Provider Student in an Organized Health Care Education/Training Program; PCP Family Medicine
DX: R10.13 Epigastric pain (principal); R10.9 Unspecified abdominal pain
CPT/HCPCS: 36415; 71046; 74177; 76705; 80053; 81003; 83690; 84484; 85025; 93005; 96374; 96375; 99284; J1885; Q9967

== ENCOUNTER → 2021-06-20 07:42 | Outpatient (CLI) | payer OTHER, SELFPAY ==
--- NOTE | 2021-06-20 07:45 | DI.NM.S_ITS ---
PROCEDURE: NM HIDA WITH CCK PHARMACEUTICAL: 5.0 mCi Tc-99m mebrofenin IV; 1.4 mcg CCK IV. INDICATIONS: ABDOMINAL PAIN TECHNIQUE: Following intravenous administration of Tc-99m mebrofenin, sequential anterior abdominal images were obtained. To evaluate the contractile response of the gallbladder in response to Cholecystokinin (CCK), sincalide (0.02 ?g/kg) was administered by slow intravenous infusion approximately 60 minutes after the administration of the radiopharmaceutical. Sequential imaging was continued for 30 minutes after the start of CCK infusion. Gallbladder ejection fraction was calculated. COMPARISON: None. FINDINGS: Biliary scan: There is normal tracer uptake and excretion by the liver. There is normal visualization of the intrahepatic ducts, common bile duct, and gallbladder. There is normal tracer transit into the duodenum. CCK stimulation: There is appropriate contractile response of the gallbladder to CCK infusion. The calculated gallbladder ejection fraction is 50% ; normal values are above 35%. It has been shown that any patient abdominal pain after CCK administration is related to the rate of CCK injection, rather than to any underlying gallbladder disease (Clinical Nuclear Medicine 2012; 37: 63-70. Journal of Nuclear Medicine 2014; 55: 1-9). IMPRESSION: Normal HIDA scan. Dictated by: Nya Cabrera M.D. on 06/20/2021 at 11:57 Approved by: Nya Cabrera M.D. on 06/20/2021 at 12:17
== END ==
PROVIDERS: PCP Family Medicine; Referring Provider Family Medicine; Visit Provider Family Medicine
DX: R10.11 Right upper quadrant pain (principal)
CPT/HCPCS: 78227; 99213; A9537; J2805

== ENCOUNTER 2021-06-21 09:45 | Day surgery (SDC) | payer OTHER, SELFPAY ==
--- NOTE | 2021-06-21 | PATH_ITS ---
[facility] Accession Number: [id number] . 01 Material submitted: . PART A: duodenum bulb - DUODENAL BULB PART B: gastrointestinal site - ANTRUM PART C: gastrointestinal site - FUNDUS PART D: gastrointestinal site - FUNDIC POLYP . 02 Diagnosis: A. Duodenal Bulb, Biopsy: Duodenal mucosa with gastric foveolar metaplasia and mild chronic inflammation. Negative for active inflammation and features of celiac disease. . B. Antrum, Biopsy: Gastric antral-type mucosa with mild reactive changes. Negative for intestinal metaplasia and dysplasia. No Helicobacter pylori seen on immunohistochemistry. . C. Fundus, Biopsy: Gastric fundic-type mucosa with mild chronic inflammation. Negative for intestinal metaplasia and dysplasia. No Helicobacter pylori seen on immunohistochemistry. . D. Fundic Polyp, Polypectomy: Gastric-type mucosa with polypoid foveolar hyperplasia. Negative for intestinal metaplasia and dysplasia. No Helicobacter pylori seen on immunohistochemistry. [facility] 06/25/2021 1619 Local . 02 Electronically signed: . Nya Ortega MD, Pathologist NPI- [id number] . 01 Gross description: . Part A: DUODENAL BULB: Received in formalin are 2 fragment(s) of waterman, soft tissue measuring 0.4 x 0.2 x 0.2 cm to 0.4 x 0.2 x 0.1 cm submitted entirely in 1 cassette(s) Part B: ANTRUM: Received in formalin are 2 fragment(s) of waterman, soft tissue measuring 0.4 x 0.3 x 0.2 cm to 0.3 x 0.3 x 0.3 cm submitted entirely in 1 cassette(s) Part C: FUNDUS: Received in formalin are 4 fragment(s) of waterman, soft tissue measuring 0.4 x 0.3 x 0.2 cm to 0.3 x 0.3 x 0.1 cm submitted entirely in 1 cassette(s) Part D: FUNDIC POLYP: Received in formalin is 1 fragment(s) of waterman, soft tissue measuring 0.3 x 0.3 x 0.2 cm submitted entirely in 1 cassette(s) /[facility] 06/22/2021 1232 Local . 02 Microscopic: . An immunohistochemical stain was performed to evaluate for Helicobacter organisms on parts B, C and D, and is negative. The control stain showed appropriate reactivity. . * This test was developed and its performance characteristics determined by [facility]. It has not been cleared or approved by the U.S. Food and Drug Administration. The FDA has determined that such clearance or approval is not necessary. This test is used for clinical purposes. It should not be regarded as investigational or for research. . 02 Pathologist provided ICD-10: R10.9, K31.7 . 02 CPT . 273092, 243391, 670969, 946945, [id number] Performed at: [facility] [address] [address], [place], [place] [id number] MD Papi Bhagat MD Phone: [phone] Performed at: 02 [facility] [address] [place] [id number] MD Paula Garcia MD Phone: [phone]
[2021-06-21 10:36] LABS: COVID19 -Nasal RAPID Negative (Negative)
[2021-06-21 10:53] VITALS: BP 121/73; PULSE 74; RESP 18; TEMP 37.2; O2SAT 97; BMI 27.6
[2021-06-21] MEDS: fentaNYL 250 MCG/5 ML INJ IV (10:53)
[2021-06-21] MEDS: MIDAZOLAM 5 MG/5 ML VIAL IV (10:54)
[2021-06-21] MEDS: LIDOCAINE 4% SOLN 50 ML 20 ML TOP (10:54)
--- NOTE | 2021-06-21 11:02 | PM.PREOP ---
Pre-operative Note COVID-19 COVID-19 status: Negative Result date/Date tested (Pos, Neg/Pending): 06/20/21 Interval Note History & Physical reviewed/Exam performed by Physician: Yes Changes to H&P: No ASA Class (for procedural sedation): II
--- NOTE | 2021-06-21 11:33 | PM.OP.EGD ---
Operative Date/Time/Diagnoses Date of procedure: 06/21/21 Time of procedure: 11:33 Pre-op diagnosis: Dyspepsia Post-op diagnosis: same Procedure & Clinicians Study performed: Esophagogastroduodenoscopy Same procedure as scheduled: Yes Indications: Dyspepsia Surgeon: Arnold Castano Procedure Notes SCOAP/Timeout: Yes Procedure in detail: A timeout was performed. A bite blocked was placed. The patient was positioned in the left lateral decubitus position. The endoscope was inserted through the bite block and passed through the esophagus and stomach and into the duodenum. The duodenal mucosa appeared normal. The scope was withdrawn into the duodenal bulb and no abnormality was noted but random biopsies were taken from the bulb. The scope was withdrawn into the stomach. The antrum appeared mildly inflamed. Random biopsies were taken from the antrum. No abnormality was noted in the body of the stomach. The scope was retroflexed and the fundus and hiatus were examined. There was no hiatal hernia. There were several small ulcerations in the fundus along with some old blood and raised lesions. Biopsies were taken from the ulcerated area as well as the raised lesions. Largest of the wrist lesions was biopsied and sent separately. The scope was withdrawn into the esophagus and no abnormality was noted. The remainder of the esophagus was normal. The scope was withdrawn. The patient was awakened and brought to recovery. Sedation minutes: 21 Post-procedure Recommendations: Will call with biopsy results Disposition: PACU
[2021-06-21 11:38] VITALS: BP 127/79; PULSE 65; RESP 12; TEMP 36.3; O2SAT 98
[2021-06-21 11:43] VITALS: BP 128/78; PULSE 64; RESP 14; O2SAT 98
[2021-06-21 11:48] VITALS: BP 125/80; PULSE 72; RESP 18; O2SAT 99
[2021-06-21 11:53] VITALS: BP 142/76; PULSE 63; RESP 16; O2SAT 98
[2021-06-21 12:00] VITALS: BP 122/74; PULSE 72; RESP 16; O2SAT 97
== END 2021-06-21 12:17 | disposition home or self-care (01) ==
PROVIDERS: PCP Family Medicine; Referring Provider Surgery; Visit Provider Surgery
PROC: 0DJ08ZZ Inspection of Upper Intestinal Tract, Via Natural or Artificial Opening Endoscopic (ICD-10-PCS; CPT 43235; principal; 2021-06-21 10:45)
DX: R10.13 Epigastric pain (principal); Z20.822 Contact with and (suspected) exposure to COVID-19; K29.80 Duodenitis without bleeding; K29.50 Unspecified chronic gastritis without bleeding; K31.7 Polyp of stomach and duodenum
CPT/HCPCS: 43239; 87635; 99152; J2250; J3010

== ENCOUNTER 2023-02-11 10:26 | Emergency (ER) | payer OTHER, SELFPAY ==
[2023-02-11 10:29] VITALS: BP 126/69; PULSE 71; RESP 14; TEMP 36.5; O2SAT 99; BMI 29.2
--- NOTE | 2023-02-11 10:39 | ED_ITS ---
HPI - General Adult General Chief complaint: Abdominal Pain Stated complaint: thinks ulcers/bloating Time Seen by Provider: 02/11/23 10:35 Source: patient Mode of arrival: Family Vehicle History of Present Illness HPI narrative: Patient is a 50-year-old female who is here for evaluation of approximately 1 week of abdominal bloating. She states she is having loose stools. Not diarrhea. No blood in her stool. She states she is not passing gas. She is burping quite a bit. Has had her appendix removed and C-sections. Is nauseous but no vomiting. No chest pain. No shortness of breath. States she is had similar symptoms in the past for which they initially thought that maybe it was her gallbladder however after further testing she had an upper endoscopy and was told that she had stomach ulcers. She talk with her primary doctor approximately 1 week ago about these symptoms. She was placed on Carafate and omeprazole. States it is not helping her symptoms. Related Data Home Medications Medication Instructions Recorded Confirmed alpha lipoic acid PO BID 06/20/21 06/20/21 fiber [Fiber Choice] 2 tab PO QAM 06/20/21 06/20/21 gabapentin 300 mg capsule 600 mg PO BEDTIME 06/20/21 06/20/21 Allergies Allergy/AdvReac Type Severity Reaction Status Date / Time No Known Drug Allergies Allergy Verified 06/21/21 10:47 Review of Systems Constitutional Constitutional: Reports system reviewed and no additional complaints, except as documented Cardiovascular Cardiovascular: Reports system reviewed and no additional complaints, except as documented Respiratory Respiratory: Reports system reviewed and no additional complaints, except as documented Gastrointestinal Gastrointestinal: Reports system reviewed and no additional complaints, except as documented Genitourinary Genitourinary: Reports system reviewed and no additional complaints, except as documented Integumentary/Breasts Skin/Breast: Reports system reviewed and no additional complaints, except as documented Hematologic/Lymphatic On Anticoagulants: No Patient History Medical History Arthralgia Benign paroxysmal positional vertigo Cyst of breast Fibrocystic breast changes Plantar fasciitis Post-menopausal atrophic vaginitis Temporomandibular joint pain dysfunction syndrome Tinea corporis Surgical History (Updated 06/20/21 @ 15:16 by Barbara Mistry RN) History of History of hip surgery Hx of spinal fusion Family History (Updated 06/20/21 @ 15:18 by Barbara Mistry RN) Father Diabetes mellitus Stroke Heart disease Cancer Mother Hypertension Social History marital status: household members: spouse Previous occupational history: Real Estate Smoking Status: Never smoker alcohol intake: current substance use type: does not use Smoking Status: Never smoker alcohol intake frequency: a few times a month Substance Use Type: does not use Exam Initial Vital Signs Initial Vital Signs: Vital Signs Temperature 97.7 F 02/11/23 10:29 Pulse Rate 71 02/11/23 10:29 Respiratory Rate 14 02/11/23 10:29 Blood Pressure 126/69 02/11/23 10:29 Pulse Oximetry 99 02/11/23 10:29 Oxygen Delivery Method Room Air 02/11/23 10:29 HENMT Head: normal to inspection and normocephalic Resp Effort & Inspection: normal respiratory effort Auscultation: clear to auscultation bilaterally Cardio Rate: regular rate Rhythm: regular rhythm GI Inspection: distended Palpation: firm, No guarding, No rigid and No tender Skin General: no rashes or lesions noted Neuro General: patient alert, patient awake and moves all extremities Extrem General: normal to inspection Course Orders Ordered: ED Orders 02/11/23 10:40 CT abdomen pelvis w con Stat 02/11/23 10:56 Complete Blood Count AUTO DIFF Stat Comprehensive Metabolic Panel Stat Lipase Stat Vital Signs Vital signs: Vital Signs - 8 hr 02/11/23 10:29 Temperature 97.7 F Pulse Rate 71 Respiratory Rate 14 Blood Pressure 126/69 Pulse Oximetry 99 Oxygen Delivery Method Room Air Medical Decision Making Lab Data 02/11/23 10:56 02/11/23 10:56 Labs: Lab Results 02/11/23 02/11/23 02/11/23 Range/Units 10:56 10:56 10:56 WBC 4.2 L (4.5-11.0) X10^3/uL RBC 4.36 (4.0-5.2) X10^6/uL Hgb 12.5 (12.0-16.0) g/dL Hct 37.3 (36-46) % MCV 85.5 (80-100) fL MCH 28.6 (26-34) PG MCHC 33.5 (30-36) % RDW 13.0 (11.6-14.8) % Plt Count 244 (150-400) X10^3/uL Neut % (Auto) 55.2 (50-75) % Lymph % (Auto) 36.9 (25-40) % [place] % (Auto) 6.1 (3-14) % Eos % (Auto) 0.9 L (2-4) % Baso % (Auto) 0.9 (0-2) % Neut # (Auto) 2300 (3728-5721) /uL Lymph # (Auto) 1600 (1786-8582) /uL [place] # (Auto) 300 (0-900) /uL Eos # (Auto) 0 (0-450) /uL Baso # (Auto) 0 (0-100) /uL Sodium 140 (137-145) mmol/L Potassium 4.1 (3.4-5.1) mmol/L Chloride 105 (98-107) mmol/L Carbon Dioxide 23 (22-32) mmol/L BUN 15 (7-17) mg/dL Creatinine 0.72 (0.52-1.04) mg/dL Estimated GFR > 60 (>60) mL/min BUN/Creatinine Ratio 20.8 (6-22) Glucose 108 H (70-100) mg/dL Calcium 9.1 (8.4-10.2) mg/dL Total Bilirubin 0.4 (0.2-1.3) mg/dL AST 25 (14-36) IU/L ALT 17 (<35) IU/L Alkaline Phosphatase 59 (38-126) U/L Total Protein 7.4 (6.3-8.2) g/dL Albumin 4.2 (3.5-5.0) g/dL Globulin 3.2 (1.7-4.1) g/dL Albumin/Globulin Ratio 1.3 (1.0-2.8) Lipase 99 (23-300) U/L Urine Dip Bedside Urine Glucose Negative Bedside Urine Bilirubin - Negative Bedside Urine Ketone - Negative Urine Specific Lane 1.000 Bedside Urine Occult Blood - Negative Bedside Urine pH 7.5 Bedside Urine Protein - Negative Bedside Urine Urobilinogen - Negative Bedside Urine Nitrite - Negative Bedside Urine Leukocytes - Negative Esterase Point of care testing: Urine Dip Bedside Urine Glucose Negative Bedside Urine Bilirubin - Negative Bedside Urine Ketone - Negative Urine Specific Lane 1.000 Bedside Urine Occult Blood - Negative Bedside Urine pH 7.5 Bedside Urine Protein - Negative Bedside Urine Urobilinogen - Negative Bedside Urine Nitrite - Negative Bedside Urine Leukocytes - Negative Esterase Imaging Data CT scan - abdomen/pelvis: Radiologist's Impression: No imaging explanation is found for this patient's presenting symptoms No appendix is identified Diverticulosis without diverticulitis. MDM Narrative Medical decision making narrative: Patient does have abdominal distention but does no guarding. No fevers. No vomiting. CT scan shows no acute pathology. Labs unremarkable. I discussed with her the lack of a definitive diagnosis but it does not appear to be an infectious, surgical etiology. Could very well still be related to a stomach ulcer. We did discuss her Carafate and omeprazole she is taken at home. She has a referral in to see GI. We discussed return precautions and follow-up instructions. She expressed understanding and agreement. Discharge Plan Departure Patient Disposition: Home Clinical Impression: Abdominal bloating Instructions: DI for Abdominal Pain-Adult Activity Restrictions/Additional Instructions: Recommend that you continue to take all of your medications like we discussed. You can consider starting to take a medicine called simethicone. Contact your primary doctor and also the GI doctors for follow-up. Return to the emergency department for new or worsening symptoms. Prescriptions: No Action gabapentin 300 mg capsule 600 mg PO BEDTIME fiber [Fiber Choice] 2 tab PO QAM alpha lipoic acid PO BID Referrals: Mercy Montano DO [Primary Care Provider] - Stand Alone Forms: Patient Portal/API
--- NOTE | 2023-02-11 10:40 | DI.CT.S_ITS ---
PROCEDURE: CT ABDOMEN PELVIS W CON INDICATIONS: Generalized abdominal pain with distention TECHNIQUE: After the administration of IV contrast, axial sections were acquired from the lung bases to the pubic symphysis. Coronal and sagittal reformats were performed. For radiation dose reduction, the following was used: automated exposure control, adjustment of mA and/or kV according to patient size. COMPARISON: [facility], CT, CT ABDOMEN PELVIS W CON, 06/04/2021, 13:42. FINDINGS: Image quality: Excellent. Lung bases: Unremarkable. Heart: No significant findings. ABDOMEN: Liver: Unremarkable. Gallbladder: Unremarkable. Biliary ducts: Unremarkable. Pancreas: Unremarkable. Spleen: Unremarkable. Adrenal Glands: Unremarkable. Kidneys and Ureters: Unremarkable. Stomach and Bowel: Stomach, small bowel loops, and colon are unremarkable. Colonic diverticulosis is seen, without findings of active diverticulitis. No appendix (either normal or abnormal) is identified on this study. Peritoneum: No abnormal intraperitoneal fluid. No free air. Ventral Wall: No hernia. Abdominal Nodes: No retroperitoneal or mesenteric adenopathy by size criteria. Vessels: Aorta and inferior vena cava are normal in size. PELVIS: Pelvic Organs: Unremarkable. Bladder: Unremarkable. Pelvic Nodes: No enlarged lymph nodes. Miscellaneous: No inguinal hernias are seen. Bones: Lower lumbar spine postoperative hardware is seen. Age-appropriate bony degenerative changes are seen. Mild dextroconvex scoliotic curvature is seen. IMPRESSION: No imaging explanation is found for this patient's presenting symptoms. No appendix (either normal or abnormal) is identified on this study. Small bowel are seen. Colonic diverticulosis is seen, without findings of active diverticulitis. Additional findings: Lower lumbar spine postoperative hardware Dictated by: Krunal Greene M.D. on 02/11/2023 at 11:32 Approved by: Krunal Greene M.D. on 02/11/2023 at 11:35
[2023-02-11 11:07] LABS: Add Manual Diff / Slide Review NO; Basophils Absolute Auto 0 /uL (0-100); Basophils Percent Auto 0.9 % (0-2); Eosinophils Absolute Auto 0 /uL (0-450); Eosinophils Percent Auto 0.9 % (2-4); Hematocrit 37.3 % (36-46); Hemoglobin 12.5 g/dL (12.0-16.0); Lymphocytes Absolute Auto 1600 /uL (1100-4500); Lymphocytes Percent Auto 36.9 % (25-40); Mean Corpuscular HGB Conc 33.5 % (30-36); Mean Corpuscular Hemoglobin 28.6 PG (26-34); Mean Corpuscular Volume 85.5 fL (80-100); Monocytes Absolute Auto 300 /uL (0-900); Monocytes Percent Auto 6.1 % (3-14); Neutrophils Absolute Auto 2300 /uL (1500-7000); Neutrophils Percent Auto 55.2 % (50-75); Platelet Count 244 X10^3/uL (150-400); Red Blood Cell Count 4.36 X10^6/uL (4.0-5.2); White Blood Cell Count 4.2 X10^3/uL (4.5-11.0)
[2023-02-11 11:18] LABS: Lipase 99 U/L (23-300)
[2023-02-11 11:20] LABS: Alanine Aminotransferase 17 IU/L (<35); Albumin 4.2 g/dL (3.5-5.0); Albumin Globulin Ratio 1.3 (1.0-2.8); Alkaline Phosphatase 59 U/L (38-126); Aspartate Aminotransferase 25 IU/L (14-36); BUN Creatinine Ratio 20.8 (6-22); Bilirubin Total 0.4 mg/dL (0.2-1.3); Blood Urea Nitrogen 15 mg/dL (7-17); Calcium 9.1 mg/dL (8.4-10.2); Carbon Dioxide 23 mmol/L (22-32); Chloride 105 mmol/L (98-107); Estimated Glomerular Filt Rate > 60 mL/min (>60); Globulin 3.2 g/dL (1.7-4.1); Glucose 108 mg/dL (70-100); HEMOLYSIS < 15 (0-50); Potassium 4.1 mmol/L (3.4-5.1); Sodium 140 mmol/L (137-145); Total Protein 7.4 g/dL (6.3-8.2)
[2023-02-11 13:46] VITALS: BP 122/76; PULSE 70; RESP 15; O2SAT 99
== END 2023-02-11 13:50 | disposition home or self-care (01) ==
PROVIDERS: Emergency Provider Emergency Medicine; PCP Family Medicine
DX: R10.84 Generalized abdominal pain (principal); R14.0 Abdominal distension (gaseous)
CPT/HCPCS: 36415; 74177; 80053; 81003; 83690; 85025; 99284

== ENCOUNTER 2023-09-17 10:28 | Day surgery (SDC) | payer OTHER, SELFPAY ==
[2023-09-09 10:50] VITALS: BMI 30.5
[2023-09-17 10:42] VITALS: BP 118/77; PULSE 62; RESP 16; TEMP 36.2; O2SAT 96; BMI 29.2
[2023-09-17] MEDS: LACTATED RINGERS 1,000 ML 21 ML IV (10:47)
--- NOTE | 2023-09-17 12:45 | PM.PREOP ---
Pre-operative Note Interval Note History & Physical reviewed/Exam performed by Physician: Yes Changes to H&P: No
[2023-09-17] MEDS: CEFAZOLIN 2 GM/100 ML PREMIX 100 ML IV (13:46)
--- NOTE | 2023-09-17 13:50 | SUR.OPER ---
Lithotomy on padded OR bed, head on pillow, arms secured on padded arm boards at <90 degrees abduction. Legs secured in padded yellow fins stirrups.
[2023-09-17] MEDS: BUPIVACAINE 0.5% (PF) 30 ML, EPINEPHrine 0.15 MG INJ (13:53)
--- NOTE | 2023-09-17 14:12 | PM.OP.1 ---
Operative Date/Time/Diagnoses Date of procedure: 09/17/23 Time of procedure: 14:12 Pre-op diagnosis: Vestibulodynia Post-op diagnosis: same Procedure & Clinicians Procedure: vestibulectomy Same procedure as scheduled: Yes Indications: Patient with longstanding pain with intercourse unresponsive to other treatments requesting removal of her vestibule to allow more comfortable intercourse Surgeon: Ksenia Smith Click Yes if Unassisted: Yes Anesthesia Type: General Operative Notes Findings: Normal exam under anesthesia Closure Type: primary Specimen(s): none sent Estimated Blood Loss (mL): 20 Blood products transfused: none Procedure in detail: Patient was brought to the operating room where she underwent general anesthesia. She was placed in low Yellofin stirrups and prepped and draped in the usual sterile fashion. 2 g of Ancef were in prior to beginning the case. A check system was reviewed with the staff in the room prior to beginning the case. The area of the vestibule was marked with a marking pen and injected with 0.5% Marcaine with epinephrine. A scalpel was used to remove the vestibule. The vaginal tissue superior to the vestibule was undermined. Bleeding was controlled with Bovie. The vaginal tissue was brought out and sutured to the perineal skin tissue with interrupted 2 0 Vicryl sutures. Adequate hemostasis was noted. Patient went to recovery room in stable condition. Complications: none Post-operative Condition: stable Disposition: same day surgery Plan for aftercare: Home when awake and stable follow-up in 2 weeks
[2023-09-17 14:23] VITALS: BP 127/82; PULSE 85; RESP 17; TEMP 36.6; O2SAT 95
[2023-09-17 14:28] VITALS: BP 140/79; PULSE 93; RESP 14; TEMP 36.4; O2SAT 97
[2023-09-17] MEDS: ACETAMINOPHEN 325 MG TABLET 650 MG PO (14:33)
[2023-09-17 14:50] VITALS: BP 136/70; PULSE 81; RESP 20; TEMP 36.6; O2SAT 98
== END 2023-09-17 14:49 | disposition home or self-care (01) ==
PROVIDERS: PCP Family Medicine; Referring Provider Specialist; Visit Provider Specialist
PROC: (CPT 15839; principal; 2023-09-17 11:45)
DX: N94.819 Vulvodynia, unspecified (principal)
CPT/HCPCS: 15839; J0171; J0690; J2704; J3010

== ENCOUNTER → 2023-09-23 10:36 | Outpatient (CLI) | payer OTHER, SELFPAY ==
[2023-09-23 11:24] LABS: Add Manual Diff / Slide Review NO; Basophils Absolute Auto 100 /uL (0-100); Basophils Percent Auto 0.9 % (0-2); Eosinophils Absolute Auto 100 /uL (0-450); Eosinophils Percent Auto 1.4 % (2-4); Hematocrit 39.2 % (36-46); Hemoglobin 13.3 g/dL (12.0-16.0); Lymphocytes Absolute Auto 2000 /uL (1100-4500); Lymphocytes Percent Auto 32.7 % (25-40); Mean Corpuscular Hemoglobin 29.7 PG (26-34); Mean Corpuscular Volume 87.4 fL (80-100); Monocytes Absolute Auto 400 /uL (0-900); Monocytes Percent Auto 6.4 % (3-14); Neutrophils Absolute Auto 3700 /uL (1500-7000); Neutrophils Percent Auto 58.6 % (50-75); Platelet Count 283 X10^3/uL (150-400); Red Blood Cell Count 4.49 X10^6/uL (4.0-5.2); Red Cell Distribution Width 13.1 % (11.6-14.8); White Blood Cell Count 6.2 X10^3/uL (4.5-11.0)
== END ==
LOC: LAB 10:37
PROVIDERS: PCP Family Medicine; Referring Provider Specialist; Visit Provider Specialist
DX: Z09 Encounter for follow-up examination after completed treatment for conditions other than malignant neoplasm (principal)
CPT/HCPCS: 36415; 85025